=== PATIENT | female | born 1990 | race Caucasian/White ===

== ENCOUNTER 2017-01-19 14:13 | Emergency (ER) | payer SELFPAY ==
--- NOTE | 2017-01-19 14:43 | ED CLINICAL REPORT ---
Clinical Report - Physicians/Mid Levels [facility] [address] [place] [address] 01/19/2017 14:17 Patient: IWONA GONZALEZ Arrived- By private vehicle. Historian- patient. HISTORY OF PRESENT ILLNESS Chief Complaint: DENTAL PAIN. This started 4 days ago and is still present. Pain described as severe. The patient has had toothache and swelling of the jaw and face. Similar symptoms previously: None. Recent medical care: Not recently seen/assessed. REVIEW OF SYSTEMS No fever, difficulty breathing, nausea, headache or vomiting. She has had enlarged lymph nodes. PAST HISTORY See nurses notes. No history of heart disease, lung disease, hypertension or diabetes mellitus. Surgeries: . Dental surgery. Tonsillectomy. (throat surgery). Medications: Multivitamins Oral. Allergies: None. SOCIAL HISTORY Never smoker. Occasional alcohol use. No drug use. ADDITIONAL NOTES The nursing notes have been reviewed. PHYSICAL EXAM Vital Signs: 01/19/2017 14:25 BP: 127/85. HR: 102. RR: 16. O2 saturation: 99%. Temp: 97.9 F. Pain level now: 8/10. Have been reviewed and appear to be correct. Appearance: Alert. No acute distress. Head: Moderate swelling of the left maxilla. Moderate erythema left maxillary area. Normal external inspection. Eyes: Pupils equal, round and reactive to light. Conjunctivae and eyelids normal. ENT: Dental decay. Moderate dental tenderness with gingival tenderness and swelling (upper left teeth). Pharynx normal. Lips normal. Uvula midline. Neck: Mild left preauricular lymphadenopathy present. CVS: Normal heart rate and rhythm. Heart sounds normal. Respiratory: No respiratory distress. Breath sounds normal. Neuro: Oriented X 3. PROGRESS AND PROCEDURES Course of Care: Mild facial swelling/cellulitis, normal EOMs Declines need for narcotic rx Work note given No evid of sepsis. Patient is stable. Patient counseled in person regarding the patient's condition, diagnosis and need for follow-up. Disposition: Discharged. Condition: stable. CLINICAL IMPRESSION Periapical dental abscess. No sinus tract. INSTRUCTIONS Do not work today. Drink plenty of fluids. Follow a soft diet. (Probiotic or yogurt w/ active cultures 1-2 hours apart from antibiotic is suggested to prevent yeast infection/diarrhea (common with antibiotics) Be sure to tell dental clinic : abscess tooth w/ facial cellulitis and that you are on antibiotics [facility]: [phone]). Your Current Medications: CONTINUE TAKING THE FOLLOWING MEDICATIONS: Multivitamins Oral. Prescription Medications: Ibuprofen 800 mg tablets: take 1 tablet orally every 8 hours. Dispense thirty (30). No refill. Penicillin V 500 mg: take 1 tab orally every 8 hours for 10 days. Dispense thirty (30). No refills. Follow-up: Follow up with doctor dentist-call for next available. Understanding of the discharge instructions verbalized by patient. (Electronically signed by Toya Dickens A.R.N.P. 01/19/2017 17:57)
--- NOTE | 2017-01-19 14:43 | ED CLINICAL REPORT ---
Clinical Report - Physicians/Mid Levels [facility] [address] [place] [address] 01/19/2017 14:17 Patient: IWONA GONZALEZ Arrived- By private vehicle. Historian- patient. HISTORY OF PRESENT ILLNESS Chief Complaint: DENTAL PAIN. This started 4 days ago and is still present. Pain described as severe. The patient has had toothache and swelling of the jaw and face. Similar symptoms previously: None. Recent medical care: Not recently seen/assessed. REVIEW OF SYSTEMS No fever, difficulty breathing, nausea, headache or vomiting. She has had enlarged lymph nodes. PAST HISTORY See nurses notes. No history of heart disease, lung disease, hypertension or diabetes mellitus. Surgeries: . Dental surgery. Tonsillectomy. (throat surgery). Medications: Multivitamins Oral. Allergies: None. SOCIAL HISTORY Never smoker. Occasional alcohol use. No drug use. ADDITIONAL NOTES The nursing notes have been reviewed. PHYSICAL EXAM Vital Signs: 01/19/2017 14:25 BP: 127/85. HR: 102. RR: 16. O2 saturation: 99%. Temp: 97.9 F. Pain level now: 8/10. Have been reviewed and appear to be correct. Appearance: Alert. No acute distress. Head: Moderate swelling of the left maxilla. Moderate erythema left maxillary area. Normal external inspection. Eyes: Pupils equal, round and reactive to light. Conjunctivae and eyelids normal. ENT: Dental decay. Moderate dental tenderness with gingival tenderness and swelling (upper left teeth). Pharynx normal. Lips normal. Uvula midline. Neck: Mild left preauricular lymphadenopathy present. CVS: Normal heart rate and rhythm. Heart sounds normal. Respiratory: No respiratory distress. Breath sounds normal. Neuro: Oriented X 3. PROGRESS AND PROCEDURES Course of Care: Mild facial swelling/cellulitis, normal EOMs Declines need for narcotic rx Work note given No evid of sepsis. Patient is stable. Patient counseled in person regarding the patient's condition, diagnosis and need for follow-up. Disposition: Discharged. Condition: stable. CLINICAL IMPRESSION Periapical dental abscess. No sinus tract. INSTRUCTIONS Do not work today. Drink plenty of fluids. Follow a soft diet. (Probiotic or yogurt w/ active cultures 1-2 hours apart from antibiotic is suggested to prevent yeast infection/diarrhea (common with antibiotics) Be sure to tell dental clinic : abscess tooth w/ facial cellulitis and that you are on antibiotics [facility]: [phone]). Your Current Medications: CONTINUE TAKING THE FOLLOWING MEDICATIONS: Multivitamins Oral. Prescription Medications: Ibuprofen 800 mg tablets: take 1 tablet orally every 8 hours. Dispense thirty (30). No refill. Penicillin V 500 mg: take 1 tab orally every 8 hours for 10 days. Dispense thirty (30). No refills. Follow-up: Follow up with doctor dentist-call for next available. Understanding of the discharge instructions verbalized by patient. (Electronically signed by Toya Dickens A.R.N.P. 01/19/2017 17:57)
--- NOTE | 2017-01-19 14:43 | ED NURSING NOTES ---
Clinical Report - Nurses [facility] [address] [place] [address] 01/19/2017 14:17 Patient: IWONA GONZALEZ TRIAGE Triage time 14:Jan 19 2017. Acuity: LEVEL 3. Chief Complaint: LEFT UPPER TOOTHACHE. Alert. No acute distress. SEPSIS SCREEN: Sepsis Screen: negative. Infection suspected/documented. Temperature not greater than 38.3 degrees C (101 degrees F). Heart rate not greater than 90. Respiratory rate not greater than 20. CARY COMA SCORE: [place] Coma Scale: 15- eyes open spontaneously (4); best verbal response- oriented x 4 (5); best motor response- obeys commands (6). --14:31 Annamaria Vance R.N. 14:25 01/19/17. BP: 127/85. HR: 102. RR: 16. O2 saturation: 99%. Temp: 97.9 F. Pain level now: 04/10. --14:31 Annamaria Vance R.N. Weight: 58 kg stated. Height/Length: 64 inches Per Patient. BMI: 22. --14:30 Annamaria Vance R.N. Medications Multivitamins Oral. --14:26 Annamaria Vance R.N. Allergies None. --14:27 Annamaria Vance R.N. History Arrived by private vehicle. Historian: patient. This is a new problem. (about 4 days ago). She has had facial pain. She has had swelling of the jaw. 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 PAST MEDICAL HX: Immunizations: up-to-date. Last normal menstrual period was 1 week ago. Denies current . SOCIAL HX: Never smoker. Occasional alcohol use. No drug use. No infectious disease exposure. SELF HARM ASSESSMENT: A self harm assessment was performed. The patient answered "no" to the question "Do you have thoughts of harming or killing yourself?". FALL RISK ASSESSMENT: Fall risk assessment completed. No fall risk identified. NUTRITIONAL RISK ASSESSMENT: The nutritional risk assessment revealed no deficiencies. FUNCTIONAL ASSESSMENT: Functional assessment: no impairments noted. LEARNING NEEDS ASSESSMENT: The learning needs assessment revealed no barriers. ABUSE ASSESSMENT: Abuse assessment: The patient was asked "Do you feel safe in your home?". SKIN INTEGRITY ASSESSMENT: Skin integrity risk assessment completed. No skin integrity risk identified. --14:31 Annamaria Vance R.N. PROBLEMS: Seizure. --14:28 Annamaria Vance R.N. ADDITIONAL SURGERIES: . Dental Surgery. Throat surgery. Tonsillectomy. --14:28 Annamaria Vance R.N. Interventions ID band on patient. To room. --14: Annamaria Vance R.N. PHYSICAL ASSESSMENT GENERAL / NEURO / PSYCH: Alert. Oriented X 4. Appears in no acute distress. HEENT: Pharynx within normal limits. Voice within normal limits. Localized dental decay (left upper molar area). RESPIRATORY: Respirations not labored. CVS: Capillary refill less than 2 seconds. SKIN: Skin is warm and dry. --14:31 Annamaria Vance R.N. NURSING PROGRESS NOTES Cold pack applied. Head of bed elevated. Patient identifiers checked. Call light placed in reach. Side rails up x 1. Bed placed in lowest position. Brakes of bed on. --14:31 Annamaria Vance R.N. 15:44 01/19/2017 Ceftriaxone IM 1 gm given. Given in the right gluteus cristiana. Allergies verified and confirmed 5 rights. --15:44 Annamaria Vance R.N. DISPOSITION / DISCHARGE Departure time: 15:Jan 19 2017. Condition at departure: unchanged. No learning barriers present. Discharge instructions provided and reviewed with the patient. Reviewed medication(s) side effects, precautions, dosing and course information. Prescription(s) given to the patient. Reviewed referral to a dentist. Patient verbalized understanding. Written instructions provided in [place]. The patient was discharged home. She left the Emergency Department ambulatory and via private vehicle. Patient driving. FALL RISK ASSESSMENT: Fall risk assessment completed. No fall risk identified. --15:24 Annamaria Vance R.N. 15:21 01/19/17. BP: 144/71. HR: 100. RR: 16. O2 saturation: 100%. Pain level now: 05/11. --15:24 Annamaria Vance R.N. Locked/Released at 01/19/2017 19:07 by Annamaria Vance R.N.
--- NOTE | 2017-01-19 14:43 | ED NURSING NOTES ---
Clinical Report - Nurses [facility] [address] [place] [address] 01/19/2017 14:17 Patient: IWONA GONZALEZ TRIAGE Triage time 14:Jan 19 2017. Acuity: LEVEL 3. Chief Complaint: LEFT UPPER TOOTHACHE. Alert. No acute distress. SEPSIS SCREEN: Sepsis Screen: negative. Infection suspected/documented. Temperature not greater than 38.3 degrees C (101 degrees F). Heart rate not greater than 90. Respiratory rate not greater than 20. CARY COMA SCORE: [place] Coma Scale: 15- eyes open spontaneously (4); best verbal response- oriented x 4 (5); best motor response- obeys commands (6). --14:31 Annamaria Vance R.N. 14:25 01/19/17. BP: 127/85. HR: 102. RR: 16. O2 saturation: 99%. Temp: 97.9 F. Pain level now: 04/10. --14:31 Annamaria Vance R.N. Weight: 58 kg stated. Height/Length: 64 inches Per Patient. BMI: 22. --14:30 Annamaria Vance R.N. Medications Multivitamins Oral. --14:26 Annamaria Vance R.N. Allergies None. --14:27 Annamaria Vance R.N. History Arrived by private vehicle. Historian: patient. This is a new problem. (about 4 days ago). She has had facial pain. She has had swelling of the jaw. 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 PAST MEDICAL HX: Immunizations: up-to-date. Last normal menstrual period was 1 week ago. Denies current . SOCIAL HX: Never smoker. Occasional alcohol use. No drug use. No infectious disease exposure. SELF HARM ASSESSMENT: A self harm assessment was performed. The patient answered "no" to the question "Do you have thoughts of harming or killing yourself?". FALL RISK ASSESSMENT: Fall risk assessment completed. No fall risk identified. NUTRITIONAL RISK ASSESSMENT: The nutritional risk assessment revealed no deficiencies. FUNCTIONAL ASSESSMENT: Functional assessment: no impairments noted. LEARNING NEEDS ASSESSMENT: The learning needs assessment revealed no barriers. ABUSE ASSESSMENT: Abuse assessment: The patient was asked "Do you feel safe in your home?". SKIN INTEGRITY ASSESSMENT: Skin integrity risk assessment completed. No skin integrity risk identified. --14:31 Annamaria Vance R.N. PROBLEMS: Seizure. --14:28 Annamaria Vance R.N. ADDITIONAL SURGERIES: . Dental Surgery. Throat surgery. Tonsillectomy. --14:28 Annamaria Vance R.N. Interventions ID band on patient. To room. --14: Annamaria Vance R.N. PHYSICAL ASSESSMENT GENERAL / NEURO / PSYCH: Alert. Oriented X 4. Appears in no acute distress. HEENT: Pharynx within normal limits. Voice within normal limits. Localized dental decay (left upper molar area). RESPIRATORY: Respirations not labored. CVS: Capillary refill less than 2 seconds. SKIN: Skin is warm and dry. --14:31 Annamaria Vance R.N. NURSING PROGRESS NOTES Cold pack applied. Head of bed elevated. Patient identifiers checked. Call light placed in reach. Side rails up x 1. Bed placed in lowest position. Brakes of bed on. --14:31 Annamaria Vance R.N. 15:44 01/19/2017 Ceftriaxone IM 1 gm given. Given in the right gluteus cristiana. Allergies verified and confirmed 5 rights. --15:44 Annamaria Vance R.N. DISPOSITION / DISCHARGE Departure time: 15:Jan 19 2017. Condition at departure: unchanged. No learning barriers present. Discharge instructions provided and reviewed with the patient. Reviewed medication(s) side effects, precautions, dosing and course information. Prescription(s) given to the patient. Reviewed referral to a dentist. Patient verbalized understanding. Written instructions provided in [place]. The patient was discharged home. She left the Emergency Department ambulatory and via private vehicle. Patient driving. FALL RISK ASSESSMENT: Fall risk assessment completed. No fall risk identified. --15:24 Annamaria Vance R.N. 15:21 01/19/17. BP: 144/71. HR: 100. RR: 16. O2 saturation: 100%. Pain level now: 05/11. --15:24 Annamaria Vance R.N. Locked/Released at 01/19/2017 19:07 by Annamaria Vance R.N.
--- NOTE | 2017-01-19 19:08 | ED MAR SUMMARY ---
..... Medication Administration Record [facility] [address] [place] [address] Patient: IWONA GONZALEZ Visit ID: [id number] 26y, F Weight: 58.0 kg Height/Length: 64 in BMI: 22 ALLERGIES: None Given 15:44 01/19/2017 Annamaria Vance R.N. Medication Administered: CEFTRIAXONE [IM], Dose: 1 gm IM. Medication Ordered: Ceftriaxone IM 1 gm (NOW).
--- NOTE | 2017-01-19 19:08 | ED MED RECONCILIATION SUMMARY ---
Patient: IWONA GONZALEZ Medication Reconciliation Report [facility] VisitID: [id number] [address] [place] [address] 26y, F Registration Date/Time: 01/19/2017 Weight: 58.0 kg Height/Length: 64 in. BMI: 22.0 ALLERGIES: None The patient's Home Medications are listed below: CONTINUE TAKING THE FOLLOWING MEDICATIONS: Multivitamins Oral The source(s) of the original Home Medication information: Not obtained. The following Medications were given to the patient in the Emergency Department: Ceftriaxone [IM] IM 1 gm, administered: 01/19/2017 3:44:00 PM The following Medications were prescribed to the patient: Ibuprofen 800 mg tablets: take 1 tablet orally every 8 hours. Dispense thirty (30). No refill. -- Toya Dickens A.R.N.P. Penicillin V 500 mg: take 1 tab orally every 8 hours for 10 days. Dispense thirty (30). No refills. -- Toya Dickens A.R.N.P.
--- NOTE | 2017-01-19 19:08 | ED ORDER SUMMARY ---
..... Patient: IWONA GONZALEZ OrderSheet [facility] VisitID: [id number] [address] [place] [address] 26y, F Registration Date/Time: 01/19/2017 ORDER SHEET Weight: 58.0 kg (stated) Allergies: None GENERAL ORDERS: MEDICATION ORDERS: Ceftriaxone IM 1 gm (NOW) (15:28 01/19/2017 Scott A.R.N.P.) (15:44 Nola Rodriguez.Dorcas.) IV FLUIDS: ORDER SHEET NOTES: [Electronically signed by Toya DickensRCamN.PCam (17:57 01/19/2017)] [Electronically signed by Annamaria Vance R.N. (19:07 01/19/2017)] [Electronically locked/signed by Annamaria Vance R.N. (19:07 01/19/2017)]
--- NOTE | 2017-01-19 19:08 | ED DISCHARGE INSTRUCTIONS ---
Patient: IWONA GONZALEZ General Instructions [facility] VisitID: [id number] [place] [address] 26y, F Registration Date/Time: 01/19/2017 Periapical dental abscess. No sinus tract. INSTRUCTIONS Do not work today. Drink plenty of fluids. Follow a soft diet. (Probiotic or yogurt w/ active cultures 1-2 hours apart from antibiotic is suggested to prevent yeast infection/diarrhea (common with antibiotics) Be sure to tell dental clinic : abscess tooth w/ facial cellulitis and that you are on antibiotics [facility]: [phone]). Your Current Medications: CONTINUE TAKING THE FOLLOWING MEDICATIONS: Multivitamins Oral. Prescription Medications: Ibuprofen 800 mg tablets: take 1 tablet orally every 8 hours. Dispense thirty (30). No refill. Penicillin V 500 mg: take 1 tab orally every 8 hours for 10 days. Dispense thirty (30). No refills. Follow-up: Follow up with doctor dentist-call for next available. Understanding of the discharge instructions verbalized by patient. ADDITIONAL INFORMATION Dental Abscess With Facial Cellulitis A dental abscess is an infection at the base of a tooth. When this is untreated, it spreads to the gum near the tooth causing swelling and pain. More severe infections cause facial swelling as the bacteria spread to the nearby tissues of the face. This is a very serious condition. Once the swelling begins, it can spread rapidly. A dental abscess usually starts with a crack or cavity in the tooth. The pain is often made worse by drinking hot or cold fluids, or biting on hard foods and may spread from the tooth to the ear or jaw on the same side. Home Care: Avoid hot and cold foods and liquids since your tooth may be sensitive to temperature changes. If your tooth is chipped or cracked, or if there is a large open cavity, apply oil of cloves or oil of peppermint (available humu-ysx-onqykqb in drug stores) directly to the tooth to reduce pain. Some pharmacies carry an ybfr-qwz-eybfmwp toothache kit. This contains a paste, which can be applied over the exposed tooth to decrease sensitivity. A cold pack on your jaw over the sore area may help reduce pain. You may use acetaminophen (Tylenol) or ibuprofen (Motrin, Advil) to control pain, unless another medicine was prescribed. [NOTE: If you have chronic liver or kidney disease or ever had a stomach ulcer or GI bleeding, talk with your doctor before using these medicines.] An antibiotic will be prescribed. Take it exactly as directed. Do not miss any doses. Follow-Up as advised with a dentist or oral surgeon. Severe cases of cellulitis must be checked again within 24 hours. Once an infection occurs in a tooth, it will continue to be a problem until the infection is drained (surgery or root canal) or the tooth is pulled. Get Prompt Medical Attention if any of the following occur: Swelling spreads to the upper half of your face or your eyelids begin to swell shut Pain worsens or spreads to the neck Fever of 100.4F (38C) or higher, or as directed by your healthcare provider Unusual drowsiness, headache or a stiff neck; weakness or fainting Difficulty swallowing or breathing You have been given the following additional information: Dental Abscess W/ Facial Cellulitis Do not work today. (Electronically signed by Toya Dickens A.R.N.P. 01/19/2017 17:57)
--- NOTE | 2017-01-19 19:08 | ED DISCHARGE INSTRUCTIONS ---
Patient: IWONA GONZALEZ General Instructions [facility] VisitID: [id number] [place] [address] 26y, F Registration Date/Time: 01/19/2017 Periapical dental abscess. No sinus tract. INSTRUCTIONS Do not work today. Drink plenty of fluids. Follow a soft diet. (Probiotic or yogurt w/ active cultures 1-2 hours apart from antibiotic is suggested to prevent yeast infection/diarrhea (common with antibiotics) Be sure to tell dental clinic : abscess tooth w/ facial cellulitis and that you are on antibiotics [facility]: [phone]). Your Current Medications: CONTINUE TAKING THE FOLLOWING MEDICATIONS: Multivitamins Oral. Prescription Medications: Ibuprofen 800 mg tablets: take 1 tablet orally every 8 hours. Dispense thirty (30). No refill. Penicillin V 500 mg: take 1 tab orally every 8 hours for 10 days. Dispense thirty (30). No refills. Follow-up: Follow up with doctor dentist-call for next available. Understanding of the discharge instructions verbalized by patient. ADDITIONAL INFORMATION Dental Abscess With Facial Cellulitis A dental abscess is an infection at the base of a tooth. When this is untreated, it spreads to the gum near the tooth causing swelling and pain. More severe infections cause facial swelling as the bacteria spread to the nearby tissues of the face. This is a very serious condition. Once the swelling begins, it can spread rapidly. A dental abscess usually starts with a crack or cavity in the tooth. The pain is often made worse by drinking hot or cold fluids, or biting on hard foods and may spread from the tooth to the ear or jaw on the same side. Home Care: Avoid hot and cold foods and liquids since your tooth may be sensitive to temperature changes. If your tooth is chipped or cracked, or if there is a large open cavity, apply oil of cloves or oil of peppermint (available nbnv-mjy-fefvyid in drug stores) directly to the tooth to reduce pain. Some pharmacies carry an mwmb-sas-sakkfld toothache kit. This contains a paste, which can be applied over the exposed tooth to decrease sensitivity. A cold pack on your jaw over the sore area may help reduce pain. You may use acetaminophen (Tylenol) or ibuprofen (Motrin, Advil) to control pain, unless another medicine was prescribed. [NOTE: If you have chronic liver or kidney disease or ever had a stomach ulcer or GI bleeding, talk with your doctor before using these medicines.] An antibiotic will be prescribed. Take it exactly as directed. Do not miss any doses. Follow-Up as advised with a dentist or oral surgeon. Severe cases of cellulitis must be checked again within 24 hours. Once an infection occurs in a tooth, it will continue to be a problem until the infection is drained (surgery or root canal) or the tooth is pulled. Get Prompt Medical Attention if any of the following occur: Swelling spreads to the upper half of your face or your eyelids begin to swell shut Pain worsens or spreads to the neck Fever of 100.4F (38C) or higher, or as directed by your healthcare provider Unusual drowsiness, headache or a stiff neck; weakness or fainting Difficulty swallowing or breathing You have been given the following additional information: Dental Abscess W/ Facial Cellulitis Do not work today. (Electronically signed by Toya Dickens A.R.N.P. 01/19/2017 17:57)
--- NOTE | 2017-01-19 19:08 | ED MAR SUMMARY ---
..... Medication Administration Record [facility] [address] [place] [address] Patient: IWONA GONZALEZ Visit ID: [id number] 26y, F Weight: 58.0 kg Height/Length: 64 in BMI: 22 ALLERGIES: None Given 15:44 01/19/2017 Annamaria Vance R.N. Medication Administered: CEFTRIAXONE [IM], Dose: 1 gm IM. Medication Ordered: Ceftriaxone IM 1 gm (NOW).
--- NOTE | 2017-01-19 19:08 | ED ORDER SUMMARY ---
..... Patient: IWONA GONZALEZ OrderSheet [facility] VisitID: [id number] [address] [place] [address] 26y, F Registration Date/Time: 01/19/2017 ORDER SHEET Weight: 58.0 kg (stated) Allergies: None GENERAL ORDERS: MEDICATION ORDERS: Ceftriaxone IM 1 gm (NOW) (15:28 01/19/2017 Scott A.R.N.P.) (15:44 Nola Rodriguez.Dorcas.) IV FLUIDS: ORDER SHEET NOTES: [Electronically signed by Toya DickensRCamN.PCam (17:57 01/19/2017)] [Electronically signed by Annamaria Vance R.N. (19:07 01/19/2017)] [Electronically locked/signed by Annamaria Vance R.N. (19:07 01/19/2017)]
--- NOTE | 2017-01-19 19:08 | ED MED RECONCILIATION SUMMARY ---
Patient: IWONA GONZALEZ Medication Reconciliation Report [facility] VisitID: [id number] [address] [place] [address] 26y, F Registration Date/Time: 01/19/2017 Weight: 58.0 kg Height/Length: 64 in. BMI: 22.0 ALLERGIES: None The patient's Home Medications are listed below: CONTINUE TAKING THE FOLLOWING MEDICATIONS: Multivitamins Oral The source(s) of the original Home Medication information: Not obtained. The following Medications were given to the patient in the Emergency Department: Ceftriaxone [IM] IM 1 gm, administered: 01/19/2017 3:44:00 PM The following Medications were prescribed to the patient: Ibuprofen 800 mg tablets: take 1 tablet orally every 8 hours. Dispense thirty (30). No refill. -- Toya Dickens A.R.N.P. Penicillin V 500 mg: take 1 tab orally every 8 hours for 10 days. Dispense thirty (30). No refills. -- Toya Dickens A.R.N.P.
== END 2017-01-19 15:20 | disposition home or self-care (01) ==
LOC: ED SRH 14:13
DX: K04.7 Periapical abscess without sinus (principal)